=== PATIENT | male | born 1950 | race Caucasian/White ===

== ENCOUNTER → 2019-08-24 | Outpatient (CLI) | payer MEDICARE ==
[2019-08-24 11:19] LABS: Basophils % (A) 1 %; Eosinophils # (A) 0.2 k/uL (0-0.7); Eosinophils % (A) 4 %; HCT 44.5 % (39.0-53.0); Lymphocytes # (A) 1.4 k/uL (1.0-4.8); Lymphocytes % (A) 26 %; MCH 30.9 pg (25.0-35.0); MCHC 31.4 g/dL (31.0-37.0); MCV 98.4 fL (80.0-100.0); Mean Platelet Volume 6.5; Monocytes # (A) 0.3 k/uL (0-1.0); Monocytes % (A) 6 %; Neutrophils # (A) 3.2 k/uL (1.3-7.7); Neutrophils % (A) 61 %; Platelet Count 165 k/uL (150-450); RBC 4.52 m/uL (4.30-5.90); RDW 13.4 % (11.5-15.5); WBC 5.3 k/uL (3.8-10.6)
[2019-08-24 16:50] LABS: African American GFR (CKD) 72.1 (60.0-200.0); Albumin 4.3 g/dL (3.80-4.90); Albumin/Globulin Ratio 1.59 (1.60-3.17); Anion Gap 6.7 mmol/L (4.00-12.00); BUN/Creat Ratio 11.67 Ratio (12.00-20.00); Calcium 9.5 mg/dL (8.7-10.3); Carbon Dioxide 28.3 mmol/L (21.6-31.8); Chol/HDL Ratio 4.73; Globulin 2.7 g/dL (1.6-3.3); LDL Cholesterol,Calculated 138.2 mg/dL (0.0-131.0); Potassium 4.2 mmol/L (3.5-5.5); Total Bilirubin 0.8 mg/dL (0.2-1.2); VLDL Calculation 51.8 mg/dL (5.00-40.00)
== END | disposition home or self-care (01) ==
LOC: LABWHC1 10:19
PROVIDERS: ATTEND Family Medicine
DX: E03.9 Hypothyroidism, unspecified (principal)
CPT/HCPCS: 36415; 80053; 80061; 84439; 84443; 85025

== ENCOUNTER → 2020-07-09 | Outpatient (CLI) | payer MEDICARE ==
--- NOTE | 2020-07-09 17:53 | XR ---
PROCEDURE: XR lumbar spine- 3V DATE AND TIME: 07/09/2020 4:27 PM CLINICAL INDICATION: PHH; M54.5; chronic low back pain TECHNIQUE: Department protocol COMPARISON: None FINDINGS: There is mild dextrocurvature. There are markedly-advanced degenerative facet and degenerative disc changes seen at all levels, with 1.5 cm anterior listhesis of L5 vertebral body upon S1, with apparent bilateral L5 pars interarticul argenis defects. There is no evidence of fracture. No focal skeletal lesion. The soft tissues are negative for acute findings. IMPRESSION: Marked multilevel lumbar spondylosis.
== END | disposition home or self-care (01) ==
LOC: RAD 16:13
PROVIDERS: ATTEND Family Medicine
DX: M47.816 Spondylosis without myelopathy or radiculopathy, lumbar region (principal)
CPT/HCPCS: 72100

== ENCOUNTER → 2020-08-12 | Outpatient (CLI) | payer MEDICARE ==
--- NOTE | 2020-08-12 18:46 | MR ---
EXAMINATION TYPE: MR lumbar spine wo con DATE OF EXAM: 08/12/2020 COMPARISON: Lumbar spine x-ray July 09, 2020 HISTORY: Lumbar spondylosis per order. Low back pain into left leg per patient TECHNIQUE: Multiplanar, multisequence imaging of the lumbar spine is performed without IV contrast. FINDINGS: Sagittal images of the lumbar spine show vertebral body heights to remain satisfactory. The re is some ossific fusion of the L2 and L3 vertebra. There is grade 1 retrolisthesis L3 on L4 and L4 on L5. There are bilateral pars defects with severe grade 1 anterolisthesis L5 on S1. Multilevel disc desiccation. Advanced disc space narrowing L3-L4 and L5-S1 levels. Moderate disc space narrowing sec ond disc phenomenon L4-L5 level. Mild to moderate disc space narrowing with heterogeneous Modic type I endplate changes and mild to moderate anterior spurring L1-L2 level. The conus medullaris is normal in position and signal ending mid L1 level. Posterior disc herniations effacing anterior thecal sac at T10-T11 and T11-T12 levels on sagittal images. Axial images at T12-L1 level show [id number] broad disc bulge with right facet degenerative chun nge and ligamentum flavum hypertrophy, there is effacement of the anterior and posterior lateral thec al sac on the right. Patent bilateral neural foramina. Axial images at the L1-L2 level shows moderate broad-based posterior disc protrusion mildly effacing anterior thecal sac. There is mild facet degenerative change and ligamentum flavum hypertrophy effaci ng posterior lateral thecal sac. There is mild right greater than left bilateral inferior neural fora irina narrowing. Axial images at the L2-L3 level show posterior spurring and spondylolisthesis with some effacement of the anterior thecal sac. There is moderate left and mild right-sided neural foraminal narrowing due to posterior bony projection. Axial images at L3-L4 level show spondylolisthesis with broad-based right foraminal/lateral disc prot rusion. There is mild/moderate right greater than left facet degenerative change effacing right theca l sac. There is [id number] left and moderate right-sided neural foraminal narrowing noted. Axial images at the L4-L5 level show spondylolisthesis with moderate to advanced broad-based posterio r disc protrusion. There is moderate to advanced facet degenerative change bilaterally. There is effa cement of the anterior and posterior lateral thecal sac. There is moderate left and severe right-side d neural foraminal narrowing. Axial images at the L5-S1 level show spondylolisthesis along with moderate to advanced facet degenera tive change bilaterally. There is effacement of the posterior lateral thecal sac. There is moderate t o severe inferior bilateral neural foraminal narrowing encroaching on the inferior aspect of both L5 nerves on the right sagittal image 12 and on the left sagittal image 3. Some cortical thinning in both kidneys is present. IMPRESSION: Multilevel spondylolisthesis and degenerative changes in the lumbar spine as detailed abo ve greatest L5-S1 level.
== END | disposition home or self-care (01) ==
LOC: RADMRIMAIN 17:46
PROVIDERS: ATTEND Family Medicine
DX: M43.16 Spondylolisthesis, lumbar region (principal); M47.816 Spondylosis without myelopathy or radiculopathy, lumbar region; M47.817 Spondylosis without myelopathy or radiculopathy, lumbosacral region
CPT/HCPCS: 72148

== ENCOUNTER → 2021-09-23 | Outpatient (CLI) | payer MEDICARE ==
--- NOTE | 2021-09-23 14:07 | XR ---
EXAMINATION TYPE: XR cervical spine comp DATE OF EXAM: 09/23/2021 COMPARISON: None HISTORY: Neck pain TECHNIQUE: 5 view cervical spine FINDINGS: Odontoid is visualized appears normal. The tip is somewhat obscured by the occiput. Prevert ebral space is normal. Anterior vertebral body spurring is present C4-C7. Posterior spinal lamellar l ine is intact. Some posterior endplate spurring is present C4-5 through C6-7. There is diffuse loss o f disc height to the cervical spine Moderate foraminal narrowing is present through the bilateral foramen greatest C3-4 through C5-6. IMPRESSION: 1. Degenerative disc change and foraminal stenosis. Consider MRI for additional workup
--- NOTE | 2021-09-23 14:10 | XR ---
EXAMINATION TYPE: XR lumbosacral spine min 4V DATE OF EXAM: 09/23/2021 COMPARISON: 07/09/2020 HISTORY: Low back pain TECHNIQUE: 5 view lumbar spine FINDINGS: There is a grade 1 to grade 2 spondylolisthesis of L5 anteriorly on S1. There is loss of di sc height throughout the lumbar spine. There may be some lumbar fusion of L2-3. Vacuum disc phenomeno n is present. Facet degenerative changes are present. No spondylolytic defects are evident. IMPRESSION: 1. Chronic advanced degenerative changes through the lumbar spine, stable from comparison 2019. 2. Grade 2 spondylolisthesis L5-S1, stable. 3. Degenerative disc changes
== END | disposition home or self-care (01) ==
LOC: RADXRMAIN 12:15
PROVIDERS: ATTEND Family Medicine
DX: M48.02 Spinal stenosis, cervical region (principal); M50.30 Other cervical disc degeneration, unspecified cervical region; M51.36 Other intervertebral disc degeneration, lumbar region
CPT/HCPCS: 72050; 72110

== ENCOUNTER 2023-06-12 12:31 | Observation (INO) | payer MEDICARE ==
[2023-06-12 12:36] VITALS: RESP 16
--- NOTE | 2023-06-12 15:16 | ED ---
General Adult HPI - General Chief complaint: Neuro Symptoms/Deficit Stated complaint: Weakness Time Seen by Provider: 06/12/23 13:42 Source: patient Mode of arrival: ambulatory Limitations: no limitations - History of Present Illness Initial comments: This is a 72-year-old male with a past medical history including hypothyroidism not on any of his prescribed medications presents the emergency department for generalized weakness. The patient stated that over the last 1-1/2 weeks, the patient is had weakness of his bilateral lower extremities and upper extremities as well as feeling cold. The patient tried to make an appointment with his private care physician but he was told to come to the emergency department to rule out a possible stroke. The patient on arrival was resting in bed without any acute or focal complaints. The patient stated that he had not taken his prescribed medications in several weeks. The patient denied any other acute p ain or complaints at this time. - Related Data Home Medications Medication Instructions Recorded Confirmed Levothyroxine Sodium [Synthroid] 112 mcg PO DAILY 06/12/23 06/12/23 Allergies Allergy/AdvReac Type Severity Reaction Status Date / Time No Known Allergies Allergy Verified 06/12/23 17:10 Review of Systems ROS Statement: Those systems with pertinent positive or pertinent negative responses have been documented in the HPI. ROS Other: All systems not noted in ROS Statement are negative. Past Medical History Past Medical History: Hyperlipidemia, Sleep Apnea/CPAP/BIPAP Additional Past Medical History / Comment(s): hx. kidney stones, past hx. colon polyps, uses CPAP History of Any Multi-Drug Resistant Organisms: None Reported Past Surgical History: Cholecystectomy, Hernia Repair Past Anesthesia/Blood Transfusion Reactions: Postoperative Nausea & Vomiting (PONV) Smoking Status: Never smoker Past Alcohol Use History: Occasional Past Drug Use History: None Reported - Past Family History Sister(s) Family Medical History: Cancer General Exam Limitations: no limitations General appearance: alert, in no apparent distress Head exam: Present: atraumatic, normocephalic, normal inspection Eye exam: Present: normal appearance, PERRL Pupils: Present: normal accommodation ENT exam: Present: normal exam, normal oropharynx, mucous membranes moist Neck exam: Present: normal inspection, full ROM Respiratory exam: Present: normal lung sounds bilaterally Cardiovascular Exam: Present: regular rate, normal rhythm, normal heart sounds GI/Abdominal exam: Present: soft, normal bowel sounds Extremities exam: Present: normal inspection, full ROM, pedal edema Back exam: Present: normal inspection, full ROM Neurological exam: Present: alert, oriented X3, CN II-XII intact. Absent: abnormal gait, motor sensory deficit Psychiatric exam: Present: normal affect, normal mood Skin exam: Present: warm, dry Course Vital Signs 06/12/23 12:34 Temperature 98.2 F Pulse Rate 74 Respiratory 16 Rate Blood Pressure 141/83 O2 Sat by Pulse 98 Oximetry EKG Findings - EKG Comments: EKG Findings:: An EKG was obtained and was interpreted by myself showing a rate of 57, GA interval 174, QR temple of 102 and QTC of 416. This EKG showed a sinus bradycardia with no ST segment elevation or depression noted. Medical Decision Making - Medical Decision Making Was pt. sent in by a medical professional or institution ([facility], [employer]IC, urgent care, hospital, or halfway...) When possible be specific @ -No Did you speak to anyone other than the patient for history (EMS, parent, family, police, friend...)? What history was obtained from this source @ -No Did you review nursing and triage notes (agree or disagree)? Why? @ -I reviewed and agree with nursing and triage notes Were old charts reviewed (outside hosp., previous admission, EMS record, old EKG, old radiological studies, urgent care reports/EKG's, halfway records)? Report findings @ -No old charts were reviewed Differential Diagnosis (chest pain, altered mental status, abdominal pain women, abdominal pain men, vaginal bleeding, weakness, fever, dyspnea, syncope, headache, dizziness, GI bleed, back pain, seizure, CVA, palpatations, mental health)? @ -Myxedema coma, hypothyroidism, electrolyte abnormality EKG interpreted by me (3pts min.). @ -As above X-rays interpreted by me (1pt min.). @ -Chest x-ray was obtained and was interpreted by myself showing no acute process. CT interpreted by me (1pt min.). @ -None done U/S interpreted by me (1pt. min.). @ -None done What testing was considered but not performed or refused? (CT, X-rays, U/S, labs)? Why? @ -None What meds were considered but not given or refused? Why? @ -None Did you discuss the management of the patient with other professionals (garfield tan i.e. , PA, GENERATING [employer]ATION MECHANIC, lab, RT, psych nurse, social work lecturer, professor of physical education, teacher, workers' compensation hearings officer, hospice case manager)? Give summary @ -Yes, admitting team was contacted and patient admission. Was smoking cessation discussed for >3mins.? @ -No Was critical care preformed (if so, how long)? @ -No Were there social determinants of health that impacted care today? How? (Homelessness, low income, unemployed, alcoholism, drug addiction, transportation, low edu. Level, literacy, decrease access to med. care, prison, rehab)? @ -No Was there de-escalation of care discussed even if they declined (Discuss DNR or withdrawal of care, Hospice)? DNR status @ -No What co-morbidities impacted this encounter? (DM, HTN, Smoking, COPD, CAD, Cancer, CVA, ARF, Chemo, Hep., AIDS, mental health diagnosis, sleep apnea, morbid obesity)? @ -Hypothyroidism Was patient admitted / discharged? Hospital course, mention meds given and route, prescriptions, significant lab abnormalities, going to OR and other pertinent info. @ -The patient was seen and evaluated emergency department. Physical exam, the patient was resting in bed without any acute distress. Vital signs admission were stable. Due to the nature the patient's complaints, laboratory workup including a TSH reflex T4 was obtained. TSH was the on the upper limits of normal with a T4 that was undetectable. Due to this severe hypothyroidism in the setting of generalized weakness, the patient will be admitted to the hospital for further workup and evaluation. The admitting team was contacted and accepted the patient for admission. The patient remained stable and could not provide his home dose of Synthroid therefore this was not started in the emergency department will be deferred to the admitting service. The patient was agreeable to this and was admitted in stable condition. Undiagnosed new problem with uncertain prognosis? @ -No Drug Therapy requiring intensive monitoring for toxicity (Heparin, Nitro, Insulin, Cardizem)? @ -No Were any procedures done? @ -No Diagnosis/symptom? @ -Severe hypothyroidism, weakness Acute, or Chronic, or Acute on Chronic? @ -Acute Uncomplicated (without systemic symptoms) or Complicated (systemic symptoms)? @ -Complicated Side effects of treatment? @ -No Exacerbation, Progression, or Severe Exacerbation? @ -No Poses a threat to life or bodily function? How? (Chest pain, [place], [place], pneumonia, PE, COPD, DKA, ARF, appy, cholecystitis, CVA, Diverticulitis, Homicidal, Suicidal, threat to staff... and all critical care pts) @ -Yes, continued severe hypothyroidism can lead to myxedema coma and severe metabolic disturbance and possible . - Lab Data Result diagrams: 06/12/23 15:13 06/12/23 15:13 Lab Results 06/12/23 06/12/23 06/12/23 Range/Units 15:13 15:13 15:13 WBC 5.1 (3.8-10.6) k/uL RBC 4.04 L (4.30-5.90) m/uL Hgb 13.4 (13.0-17.5) gm/dL Hct 39.9 (39.0-53.0) % MCV 98.7 (80.0-100.0) fL MCH 33.2 (25.0-35.0) pg MCHC 33.6 (31.0-37.0) g/dL RDW 14.5 (11.5-15.5) % Plt Count 107 L (150-450) k/uL MPV 8.6 Neutrophils % 61 % Lymphocytes % 30 % Monocytes % 4 % Eosinophils % 3 % Basophils % 1 % Neutrophils # 3.1 (1.3-7.7) k/uL Lymphocytes # 1.5 (1.0-4.8) k/uL Monocytes # 0.2 (0-1.0) k/uL Eosinophils # 0.1 (0-0.7) k/uL Basophils # 0.0 (0-0.2) k/uL PT 10.9 (9.0-12.0) sec INR 1.0 (<1.2) APTT 25.0 (22.0-30.0) sec Sodium 137 (137-145) mmol/L Potassium 4.4 (3.5-5.1) mmol/L Chloride 103 (98-107) mmol/L Carbon Dioxide 28 (22-30) mmol/L Anion Gap 6 mmol/L BUN 18 (9-20) mg/dL Creatinine 1.64 H (0.66-1.25) mg/dL Est GFR (CKD-EPI)AfAm 48 (>60 ml/min/1.73 sqM) Est GFR (CKD-EPI)NonAf 42 (>60 ml/min/1.73 sqM) Glucose 91 (74-99) mg/dL Calcium 9.0 (8.4-10.2) mg/dL Magnesium 2.0 (1.6-2.3) mg/dL Total Bilirubin 1.5 H (0.2-1.3) mg/dL AST 54 (17-59) U/L ALT 24 (4-49) U/L Alkaline Phosphatase 40 (38-126) U/L Troponin I (0.000-0.034) ng/mL NT-Pro-B Natriuret Pep 27 pg/mL Total Protein 7.8 (6.3-8.2) g/dL Albumin 4.1 (3.5-5.0) g/dL Lipase 146 (23-300) U/L TSH >100.000 H (0.465-4.680) mIU/L Free T4 <0.07 L (0.78-2.19) ng/dL Urine Color Urine Appearance (Clear) Urine pH (5.0-8.0) Ur Specific [place] (1.001-1.035) Urine Protein (Negative) Urine Glucose (UA) (Negative) Urine Ketones (Negative) Urine Blood (Negative) Urine Nitrite (Negative) Urine Bilirubin (Negative) Urine Urobilinogen (<2.0) mg/dL Ur Leukocyte Esterase (Negative) 06/12/23 06/12/23 Range/Units 15:13 15:38 WBC (3.8-10.6) k/uL RBC (4.30-5.90) m/uL Hgb (13.0-17.5) gm/dL Hct (39.0-53.0) % MCV (80.0-100.0) fL MCH (25.0-35.0) pg MCHC (31.0-37.0) g/dL RDW (11.5-15.5) % Plt Count (150-450) k/uL MPV Neutrophils % % Lymphocytes % % Monocytes % % Eosinophils % % Basophils % % Neutrophils # (1.3-7.7) k/uL Lymphocytes # (1.0-4.8) k/uL Monocytes # (0-1.0) k/uL Eosinophils # (0-0.7) k/uL Basophils # (0-0.2) k/uL PT (9.0-12.0) sec INR (<1.2) APTT (22.0-30.0) sec Sodium (137-145) mmol/L Potassium (3.5-5.1) mmol/L Chloride (98-107) mmol/L Carbon Dioxide (22-30) mmol/L Anion Gap mmol/L BUN (9-20) mg/dL Creatinine (0.66-1.25) mg/dL Est GFR (CKD-EPI)AfAm (>60 ml/min/1.73 sqM) Est GFR (CKD-EPI)NonAf (>60 ml/min/1.73 sqM) Glucose (74-99) mg/dL Calcium (8.4-10.2) mg/dL Magnesium (1.6-2.3) mg/dL Total Bilirubin (0.2-1.3) mg/dL AST (17-59) U/L ALT (4-49) U/L Alkaline Phosphatase (38-126) U/L Troponin I <0.012 (0.000-0.034) ng/mL NT-Pro-B Natriuret Pep pg/mL Total Protein (6.3-8.2) g/dL Albumin (3.5-5.0) g/dL Lipase (23-300) U/L TSH (0.465-4.680) mIU/L Free T4 (0.78-2.19) ng/dL Urine Color Yellow Urine Appearance Clear (Clear) Urine pH 6.0 (5.0-8.0) Ur Specific [place] 1.025 (1.001-1.035) Urine Protein Trace H (Negative) Urine Glucose (UA) Negative (Negative) Urine Ketones Negative (Negative) Urine Blood Negative (Negative) Urine Nitrite Negative (Negative) Urine Bilirubin Negative (Negative) Urine Urobilinogen 2.0 (<2.0) mg/dL Ur Leukocyte Esterase Negative (Negative) Disposition Clinical Impression: Weakness, Hypothyroid Disposition: ADMITTED IP TO THIS [facility] Condition: Stable Is patient prescribed a controlled substance at d/c from ED?: No Time of Disposition: 16:00 Decision to Admit Reason: Admit from EC Decision Date: 06/12/23 Decision Time: 16:00
[2023-06-12 15:38] LABS: Basophils % (A) 1 %; Eosinophils # (A) 0.1 k/uL (0-0.7); Eosinophils % (A) 3 %; HCT 39.9 % (39.0-53.0); HGB 13.4 gm/dL (13.0-17.5); Lymphocytes # (A) 1.5 k/uL (1.0-4.8); Lymphocytes % (A) 30 %; MCH 33.2 pg (25.0-35.0); MCHC 33.6 g/dL (31.0-37.0); MCV 98.7 fL (80.0-100.0); Mean Platelet Volume 8.6; Monocytes # (A) 0.2 k/uL (0-1.0); Monocytes % (A) 4 %; Neutrophils # (A) 3.1 k/uL (1.3-7.7); Neutrophils % (A) 61 %; Platelet Count 107 k/uL (150-450); RBC 4.04 m/uL (4.30-5.90); RDW 14.5 % (11.5-15.5); WBC 5.1 k/uL (3.8-10.6)
--- NOTE | 2023-06-12 15:38 | XR ---
EXAMINATION TYPE: XR chest 2V DATE OF EXAM: 06/12/2023 COMPARISON: NONE TECHNIQUE: PA and lateral views submitted. HISTORY: Weakness FINDINGS: The lungs are clear and there is no pneumothorax, pleural effusion, or focal pneumonia. Heart size normal and no overt failure. Osseous structures demonstrate hypertrophic and degenerative changes of the spine. Atherosclerotic change aorta. Bilateral pleural thickening. IMPRESSION: 1. No acute process.
[2023-06-12 15:41] LABS: ALT 24 U/L (4-49); African American GFR (CKD) 48 (>60 ml/min/1.73 sqM); Albumin 4.1 g/dL (3.5-5.0); Anion Gap 6 mmol/L; Blood Urea Nitrogen 18 mg/dL (9-20); Carbon Dioxide 28 mmol/L (22-30); Chloride 103 mmol/L (98-107); Glucose 91 mg/dL (74-99); Lipase 146 U/L (23-300); Non-African American GFR(CKD) 42 (>60 ml/min/1.73 sqM); Prothrombin Time 10.9 sec (9.0-12.0); Sodium 137 mmol/L (137-145); Total Bilirubin 1.5 mg/dL (0.2-1.3); Total Protein 7.8 g/dL (6.3-8.2)
[2023-06-12 15:50] LABS: NT-Pro-B-Type Natriuretic Pept 27 pg/mL
[2023-06-12 16:00] LABS: AST 54 U/L (17-59); Alkaline Phosphatase 40 U/L (38-126); Potassium 4.4 mmol/L (3.5-5.1)
[2023-06-12 16:41] LABS: Appearance,Urine Clear (Clear); Bilirubin,Urine Negative (Negative); Blood,Urine Negative (Negative); Color,Urine Yellow; Glucose,Urine (UA) Negative (Negative); Ketones,Urine Negative (Negative); Leukocyte Esterase,Urine Negative (Negative); Nitrite,Urine Negative (Negative); Protein,Urine Trace (Negative); Specific Gravity,Urine 1.025 (1.001-1.035)
[2023-06-12 17:02] LABS: T4, Free (Free Thyroxine) <0.07 ng/dL (0.78-2.19)
[2023-06-12] MEDS ORDERED: NALOXONE 0.4 MG/ML 1 ML VIAL IV PRN (17:45)
[2023-06-13] MEDS ORDERED: LEVOTHYROXINE 112 MCG TAB PO SCH (06:30)
[2023-06-13 12:09] VITALS: BP 134/89; PULSE 82; TEMP 97.6
[2023-06-13] MEDS ORDERED: SODIUM CHLORIDE 0.9% 500 ML 500 ML IV ONE (12:29)
[2023-06-13] MEDS ORDERED: SODIUM CHLORIDE 0.9% 1,000 ML IV SCH (12:30)
--- NOTE | 2023-06-14 04:20 | P.HPIM ---
History of Present Illness H&P Date: 06/13/23 This is a 72-year-old male who presented to the emergency department with progressive weakness and inability to ambulate. Patient reports he follows with Dr. Sakshi Fernandes in the outpatient setting with a past medical history of hyperlipidemia, sleep apnea, hypothyroidism, former smoker. Patient admits to socially drinking and denies any other illicit drug use. Patient reports he stopped taking his Synthroid a few months ago and has not followed up since reported progressive weakness with inability to ambulate and came to the hospital for further evaluation. Chest x-ray in the ER showed no acute process, EKG showed sinus bradycardia with heart rate of 57, other list reviewed and within normal limits, BMP mildly elevated and TSH was over 100 with a low T4. Review Of Systems: Constitutional: No fever, no chills, no night sweats. No weight change. Reports increased weakness, fatigue with lethargy. No daytime sleepiness. EENT: No headache. No blurred vision or double vision, no loss of vision. No loss of Hearing, no ringing in the ears, no dizziness. No nasal drainage or co ngestion. No epistaxis. No sore throat. Lungs: No shortness of breath, cough, no sputum production. No wheezing. Cardiovascular: No chest pain, no lower extremity edema. No palpitations. No paroxysmal nocturnal dyspnea. No orthopnea. No lightheadedness or dizziness. No syncopal episodes. Abdominal: No abdominal pain. No nausea, vomiting. No diarrhea. No constipation. No bloody or tarry stools.. No loss of appetite. Genitourinary: No dysuria, increased frequency, urgency. No urinary retention. Musculoskeletal: No myalgias. No muscle weakness, no gait dysfunction, no frequent falls. No back pain. No neck pain. Currently reports right hip and lower extremity numbness Integumentary: No wounds, no lesions. No rash or pruritus. No unusual bruising. No change in hair or nails. Reports feeling more cold all the time Neurologic: No aphasia. No facial droop. No change in mentation. No head injury. No headache. No paralysis. No paresthesia. Psychiatric: No depression. No anxiety. No mood swings. Endocrine: No abnormal blood sugars. No weight change. No excessive sweating or thirst. Reports cold intolerance. PHYSICAL EXAMINATION: GENERAL: The patient is alert and oriented x4, Well developed, well nourished. Obese HEENT: Pupils are round and equally reacting to light. EOMI. no scleral icterus. No conjunctival pallor. Normocephalic, atraumatic. No pharyngeal erythema. No thyromegaly. CARDIOVASCULAR: S1 and S2 muffled PULMONARY: diminished breath sounds bilaterally with no wheezing or rhonchi noted. ABDOMEN: soft. Nontender on exam. obese. non-distended, normoactive bowel sounds. No palpable organomegaly. MUSCULOSKELETAL: No joint swelling or deformity. EXTREMITIES: No cyanosis, clubbing, or pedal edema. NEUROLOGICAL: Gross neurological examination did not reveal any focal deficits. Diffuse weakness SKIN: No rashes. Assessment: Generalized weakness with inability to ambulate History of sleep apnea Elevated creatinine with acute kidney injury, likely secondary to dehydration History of hypothyroidism with noncompliance to medications, reports has not taken his medications in over 2 months History of hyperlipidemia Former smoker obesity with BMI of 35.4 GI prophylaxis DVT prophylaxis Full code Plan: Patient is being given gentle IV hydration and will provide prescription for follow-up labs to monitor the functions Extreme noncompliance with medications and this was discussed at length about the importance of continuing medications and will be resumed on levothyroxine and resource provided for referral to endocrine and instruct patient to follow- up with primary care provider this week Recommend repeat labs in the next few weeks to monitor her TSH with T3 and T4 free Patient evaluated by physical therapy and did well with no significant gait dysfunction Patient will be discharged later today The impression and plan of care has been dictated by Shayy Gallo, nurse practitioner as directed. Dr. Zion MD I have performed a history and examination and MDM of this patient, discussed the same with the dictator, and agree with the dictator's assessment and plan as written ,documented as a scribe. Based on total visit time, I have performed more than 50% of the visit. Any additional findings or plans will be noted. Past Medical History Past Medical History: Hyperlipidemia, Sleep Apnea/CPAP/BIPAP Additional Past Medical History / Comment(s): hx. kidney stones, past hx. colon polyps History of Any Multi-Drug Resistant Organisms: None Reported Past Surgical History: Cholecystectomy, Hernia Repair Past Anesthesia/Blood Transfusion Reactions: Postoperative Nausea & Vomiting (PONV) Smoking Status: Former smoker Past Alcohol Use History: Occasional Additional Past Alcohol Use History / Comment(s): quit smoking 2003, smoked since age of 14 Past Drug Use History: None Reported - Past Family History Sister(s) Family Medical History: Cancer Medications and Allergies Home Medications Medication Instructions Recorded Confirmed Type Levothyroxine Sodium [Synthroid] 112 mcg PO DAILY 30 Days #30 tab 06/13/23 Rx Allergies Allergy/AdvReac Type Severity Reaction Status Date / Time No Known Allergies Allergy Verified 06/12/23 17:10 Physical Exam Vitals: Vital Signs Temp Pulse Pulse Resp BP BP Pulse Ox 06/13/23 07:15 97.7 F 62 16 117/68 99 06/13/23 02:00 97.7 F 54 L 16 130/89 06/12/23 21:49 97.8 F 56 L 16 149/91 06/12/23 20:29 98.1 F 57 L 16 144/95 97 06/12/23 12:34 98.2 F 74 16 141/83 98 Intake and Output 06/12/23 06/13/23 06/13/23 22:59 06:59 14:59 Other: # Voids 2 Weight 90.718 kg Results CBC & Chem 7: 06/12/23 15:13 06/12/23 15:13 Labs: Abnormal Lab Results - Last 24 Hours (Table) 06/12/23 06/12/23 06/12/23 Range/Units 15:13 15:13 15:38 RBC 4.04 L (4.30-5.90) m/uL Plt Count 107 L (150-450) k/uL Creatinine 1.64 H (0.66-1.25) mg/dL Total Bilirubin 1.5 H (0.2-1.3) mg/dL TSH >100.000 H (0.465-4.680) mIU/L Free T4 <0.07 L (0.78-2.19) ng/dL Urine Protein Trace H (Negative) Thrombosis Risk Factor Assmnt - Choose All That Apply Each Factor Represents 1 point: Obesity (BMI >25) Each Risk Factor Represents 2 Points: Age 61-74 years Other congenital or acquired thrombophilia - If yes, enter type in comment: No Thrombosis Risk Factor Assessment Total Risk Factor Score: 3 Thrombosis Risk Factor Assessment Level: Moderate Risk Assessment and Plan Time with Patient: Greater than 30
--- NOTE | 2023-06-16 23:07 | P.DS ---
Providers Date of admission: 06/12/23 17:45 Expected date of discharge: 06/13/23 Attending physician: Charlene Pickens Primary care physician: Sakshi Fernandes Hospital Course: Final diagnosis Generalized weakness with inability to ambulate History of sleep apnea Elevated creatinine with acute kidney injury, likely secondary to dehydration History of hypothyroidism with noncompliance to medications, reports has not taken his medications in over 2 months History of hyperlipidemia Former smoker obesity with BMI of 35.4 GI prophylaxis DVT prophylaxis Full code Discharge disposition Patient is being discharged in a stable condition with guarded prognosis to home. Patient will follow-up with Dr. Fernandes in the outpatient setting upon discharge. Patient is to continue with current medications as mentioned below and close outpatient follow-up with endocrine as well and repeat labs to monitor kidney functions in the next few days. Patient has been resumed on levothyroxine and recommend follow-up labs in 4-6 weeks. Total time taken is greater than 35 minutes. Hospital course This is a 72-year-old male who was recently admitted with generalized weakness and inability to ambulate being closely monitored. Patient was hydrated showing some dehydration and kidney functions mildly elevated and thyroid functions abnormal. Patient reports has not been taking his medications in over 2 months and thyroid is over 100 with a low T4. Patient to follow up with endocrine outpatient and has been resumed on levothyroxine and will follow-up with repeat labs in the next few weeks. Patient to follow-up on kidney function labs in the next 2-3 days. Patient was evaluated by physical therapy and did well and will be going home. Currently no reports of chest pain, shortness of breath, or palpitations. Patient is afebrile. No reports of nausea or vomiting and patient is tolerating diet. Patient will be discharged home today. Physical exam: Gen: This is a 72-year-old male who is awake, alert and oriented 3, well-develo ped, well-nourished, obese HEENT: Head is atraumatic, normocephalic. Pupils equal, round. Sclerae is anicteric. NECK: Supple. No JVD. No lymphadenopathy. No thyromegaly. LUNGS: Clear to auscultation. No wheezes or rhonchi. No intercostal retractions. HEART: Regular rate and rhythm. No murmur. ABDOMEN: Soft. Obese. Bowel sounds are present. No masses. No tenderness. EXTREMITIES: No pedal edema. No calf tenderness. NEUROLOGICAL: Patient is awake, alert and oriented x3. Cranial nerves 2 through 12 are grossly intact. Please refer to medication reconciliation sheet for a list of medications. The impression and plan of care has been dictated by Shayy Gallo, Nurse Practitioner as directed. Dr. Zion MD I have performed a history and examination and MDM of this patient, discussed the same with the dictator, and agree with the dictator's assessment and plan as written ,documented as a scribe. Based on total visit time, I have performed more than 50% of the visit. Patient Condition at Discharge: Stable Plan - Discharge Summary Discharge Rx Participant: No New Discharge Prescriptions: Continue Levothyroxine Sodium [Synthroid] 112 mcg PO DAILY 30 Days #30 tab Discharge Medication List Levothyroxine Sodium [Synthroid] 112 mcg PO DAILY 30 Days #30 tab 06/13/23 [Rx] Follow up Appointment(s)/Referral(s): Sakshi Fernandes MD [Primary Care Provider] - 06/15/23 11:30 am (Please have the doctor send over a referral for the agent producer Dr. Brito in order for that office to see you.) Lul Brito MD [REFERRING] - 1 Week (They will not schedule you until you see your primary doctor and get a referral.) Ambulatory/Diagnostic Orders: Basic Metabolic Panel [LAB.AMB] Time Frame: 3 Days, Location: None Selected Patient Instructions/Handouts: Hypothyroidism (ED) Activity/Diet/Wound Care/Special Instructions: Activity Limited until follow-up Follow-up with primary care provider on discharge Continue taking medications as prescribed Recommend repeat labs in the next few days to monitor kidney functions Recommend endocrine follow-up for tight thyroid control Discharge Disposition: HOME SELF-CARE
== END 2023-06-13 18:00 | disposition home or self-care (01) ==
LOC: EC 12:31 → 5NMEDONC 17:45 → INTOOBSV 17:45 → 5NMEDONC 20:13
PROVIDERS: ADMIT Hospitalist; ATTEND Hospitalist
DX: R53.1 Weakness (principal); N17.9 Acute kidney failure, unspecified; E03.9 Hypothyroidism, unspecified; E78.5 Hyperlipidemia, unspecified; G47.30 Sleep apnea, unspecified; R26.2 Difficulty in walking, not elsewhere classified; E66.9 Obesity, unspecified; Z68.35 Body mass index [BMI] 35.0-35.9, adult; Z87.891 Personal history of nicotine dependence; Z91.148 Patient's other noncompliance with medication regimen for other reason; Z79.890 Hormone replacement therapy
CPT/HCPCS: 99285; 36415; 93005; 97161; 97166; 84439; 83880; 80053; 84443; 83690; 83735; 84484; 85025; 85610; 85730; 81003; 71046; G0378 ×2

== ENCOUNTER 2023-10-11 09:18 | Day surgery (SDC) | payer MEDICARE ==
[2023-10-09 09:57] VITALS: BMI 32.1
[2023-10-11] MEDS ORDERED: SODIUM CHLORIDE 0.9% 500 ML 500 ML IV ONE (09:26)
[2023-10-11 10:05] VITALS: TEMP 98.2
[2023-10-11] MEDS ORDERED: fentaNYL (PF) 50 MCG/ML 2 ML AMP ONE (10:15)
[2023-10-11] MEDS ORDERED: BENZOCAINE SPRAY 1 CAN TOPICAL ONE ×2 (10:48→10:57)
[2023-10-11] MEDS ORDERED: MIDAZOLAM 2 MG/2 ML VIAL IVP ONE ×2 (10:57→10:59)
[2023-10-11] MEDS ORDERED: fentaNYL (PF) 50 MCG/ML 2 ML AMP IVP ONE (10:57)
[2023-10-11 11:37] VITALS: RESP 18
[2023-10-11 12:39] VITALS: BP 125/66; PULSE 68
--- NOTE | 2023-10-11 14:41 | P.TEE ---
Date of Procedure: 10/11/23 Description of Procedure(s): Procedure performed: 1. Transesophageal Echocardiogram with color flow doppler, pulsed wave doppler and continuous wave doppler 2. Moderate conscious sedation. Sedation time 12 mins. Indications: Suspected bicuspid aortic valve Patient was evaluated by Dr. Paxton Tong who is a family practice doctor in [place]. He heard a murmur on exam and he had a suspicion of bicuspid aortic valve on surface echocardiogram. He does not perform transesophageal echocardiogram by himself. Patient is a rincon of [place] therefore Dr. Tong referred the patient to me. We have performed a transesophageal echocardiogram to evaluate his bicuspid aortic valve and see if he has any other valvular abnormality or ascending aortic aneurysms. Consent: I have discussed the risks, benefits and alternative therapies for the above-mentioned procedure. The patient has indicated understanding and acceptance of the risks of the procedure. Signed consent was obtained and was placed in the paper chart. Procedural Steps: Timeout was performed in usual fashion. Patient's heart rate, blood pressure, oxygen saturation and ECG were monitored. Benzocaine was sprayed liberally in the back of the throat. Bite block was placed between the jaw. 3 mg of Versed and 50 mcg of Fentanyl were administered intravenously. After achieving appropriate moderate conscious sedation, CHANG probe was advanced without difficulty and without any immediate complications to the esophagus. CHANG study was performed with color flow doppler, pulsed wave doppler and continuous wave doppler. Agitated saline bubbles were injected to assess for any intra- atrial shunt. The probe was then removed. Patient tolerated the procedure well. Patient was transferred to the post procedure area in stable and satisfactory condition. Throughout the procedure patient's heart rate, blood pressure, oxygen saturation and ECG were monitored. Total sedation time 12 mins. Complications: none FINDINGS Left Atrium: Normal Left atrial size. No evidence of mass or thrombus seen Left Atrial Appendage: No evidence of thrombus or mass seen in HEIKE Inter atrial septum: Intact inter-atrial septum with no evidence of atrial septal defect or patent foramen ovale. Left Ventricle: Normal global LV size and systolic function Right Atrium: Normal overall RV size Right Ventricle: Normal global RV size and systolic function Aortic Valve: Bicuspid aortic valve with calcific thickening of that leaflet tips. Fusion of the left and right coronary cusp. At least moderate aortic stenosis mean gradient of 22 mmHg. Mild eccentric aortic regurgitation. Mitral Valve: Struturally normal. No evidence of prolapse. No evidence of stenosis or regurgitation on doppler assessment. Trace regurgitation. Pulmonic Valve: No significant pulmonic regurgitation Tricuspid Valve: Structurally normal with mild tricuspid regurgitation. Ascending aorta, Aortic root and Aortic arch: Dilated ascending aorta measuring at 4.8 cm Descending aorta: Moderate intimal thickening with 1-2 mm calcification on the aortic wall CONCLUSION: Bicuspid aortic valve with calcific thickening of leaflet tips Fusion of left and right coronary cusp Moderate aortic stenosis with mean gradient of 22 mmHg next and mild eccentric aortic regurgitation Dilated ascending aorta measuring at 4.8 cm (saccular) Intimal thickening and calcification of aortic wall I explained the findings of transesophageal echocardiogram to the patient and patient's family. I have advised him to follow-up with a family practice doctor either me or Dr. Tong. I provided him with a CD of the procedure. Please fax the report to the patient's PCP and Dr Paxton Tong MD [place], [place]
== END 2023-10-11 12:33 | disposition home or self-care (01) ==
LOC: CATHCVL 09:18
PROVIDERS: ATTEND Student in an Organized Health Care Education/Training Program
DX: I35.0 Nonrheumatic aortic (valve) stenosis (principal); I35.1 Nonrheumatic aortic (valve) insufficiency
CPT/HCPCS: 93312; 93320; 93325; J2250; J3010

== ENCOUNTER → 2023-11-17 | Outpatient (CLI) | payer MEDICARE ==
[2023-11-17 10:48] LABS: Chloride 106 mmol/L (98-107); Sodium 141 mmol/L (137-145)
[2023-11-17 10:51] LABS: Anion Gap 9 mmol/L; Calcium 9.2 mg/dL (8.4-10.2); Carbon Dioxide 26 mmol/L (22-30); Glucose 105 mg/dL (74-99); Potassium 4.6 mmol/L (3.5-5.1)
[2023-11-17 10:52] LABS: African American GFR (CKD) 83 (>60 ml/min/1.73 sqM); Blood Urea Nitrogen 13 mg/dL (9-20); Non-African American GFR(CKD) 72 (>60 ml/min/1.73 sqM)
--- NOTE | 2023-11-17 11:58 | CT ---
EXAMINATION TYPE: CT angio chest CT DLP: 845 mGycm, Automated exposure control for dose reduction was used. DATE OF EXAM: 11/17/2023 11:26 AM COMPARISON: None CLINICAL INDICATION:Male, 72 years old with history of Q23.1 CONGENITAL INSUFFICIENCY OF AORTIC VALVE ; bicuspid valve TECHNIQUE/CONTRAST: CTA scan of the thorax is performed without and with IV Contrast, patient injected with 100 mL of Iso vandana 300, MIP images are created and reviewed these are created on a separate workstation.. FINDINGS: Lungs/Pleura: No evidence of focal consolidation, pleural effusion or pneumothorax. Mild centrilobula r emphysema changes are seen throughout the lungs. Mild paraseptal emphysema changes in the lung apic es. Airway: Large airways are patent. Heart: The heart is mildly enlarged for size. There is aortic valve leaflet calcifications which are mild. Mild coronary artery atherosclerosis. Vasculature: No evidence for intramural hematoma on noncontrast imaging. No evidence of intimal flap to suggest dissection.; Thoracic aorta aneurysmal dilation up to 5.5 cm with smooth tapering. No desc ending thoracic aorta aneurysm... Scattered atherosclerotic disease. Mediastinum: No gross evidence of adenopathy. There is a fluid collection density just left of the ao rta near the aortic hiatus in the inferior mediastinum. Musculoskeletal: Moderate degenerative disc disease changes are present throughout the thoracolumbar spine. Soft Tissues: Unremarkable. Lower neck: No significant findings. Upper Abdomen: Nodular contour to liver. The gallbladder is absent. IMPRESSION: 1. Ascending Thoracic aorta aneurysm measuring up to 5.5 cm. 2. Aortic valve calcifications. 3. No evidence for dissection or intramural hematoma. 4. Nodular contour to liver correlate for cirrhosis.
== END | disposition home or self-care (01) ==
LOC: RADCTMAIN 10:01
PROVIDERS: ATTEND Student in an Organized Health Care Education/Training Program
DX: I71.21 Aneurysm of the ascending aorta, without rupture (principal); Q23.1 Congenital insufficiency of aortic valve
CPT/HCPCS: 80048; 71275; 36415; Q9967

== ENCOUNTER → 2024-03-26 | Outpatient (CLI) | payer MEDICARE ==
--- NOTE | 2024-03-26 16:51 | XR ---
EXAMINATION TYPE: XR cervical spine comp DATE OF EXAM: 03/26/2024 COMPARISON: None HISTORY: 73-year-old male M54.12, radiculopathy TECHNIQUE: 5 views FINDINGS: Advanced hypertrophic facet and uncovertebral joint arthropathy is present throughout. Normal odontoi d view. On the right, there is moderate to severe bony neural foraminal narrowing at C4-C5, moderate at C3-C4 , and mild at additional levels. On the left, there is moderate bony neuroforaminal narrowing at C6-C7 and mild at additional levels. No predental space widening or prevertebral soft tissue swelling. Reversal of the normal cervical cecilia dosis. Trace grade 1 anterolisthesis C7-T1. Moderate to advanced disc/endplate degenerative change C5 -C7 levels. IMPRESSION: Moderate to advanced spondylotic changes especially mid to lower cervical spine. Degenerative grade 1 anterolisthesis C7-T1. Possible moderate to severe bony neuroforaminal narrowing on the right at C4- C5.
[2024-03-26 19:26] LABS: T4, Free (Free Thyroxine) 1.62 ng/dL (0.80-1.80)
== END | disposition home or self-care (01) ==
LOC: LABWHC1 10:38
PROVIDERS: ATTEND Family Medicine
DX: M47.22 Other spondylosis with radiculopathy, cervical region (principal); E03.9 Hypothyroidism, unspecified; M43.13 Spondylolisthesis, cervicothoracic region; R35.0 Frequency of micturition
CPT/HCPCS: 36415; 72050; 84153; 84439; 84443

== ENCOUNTER → 2024-05-03 | Outpatient (CLI) | payer MEDICARE ==
--- NOTE | 2024-05-03 19:59 | MR ---
EXAMINATION TYPE: MR cervical spine wo con DATE OF EXAM: 05/03/2024 COMPARISON: None HISTORY: Neck pain into right arm, numbness right fingers TECHNIQUE: Multiplanar, multisequence images of the cervical spine were acquired without contrast. Findings: The craniovertebral junction relationships and prevertebral soft tissues are normal. The cervical vertebral segments are normal in height and alignment and there is no fracture or sublux ation. There is mild disc space narrowing, loss of signal intensity, circumferential disc bulge and spondylo sis at C3-4, C4-5, C5-6 and C6-7 levels. There is no cervical stenosis or cervical cord abnormality. There is mild hypertrophic spurring and disc bulge to the left of midline at the C2-3 level mildly co mpromising the left lateral recess there is a mild to moderate disc spur complex at the C4-5 level po steriorly and to the right of midline compromising the right lateral recess. There is a large disc sp ur complex at the C5-6 level on the right severely compromising the right lateral recess. There is multilevel neural foraminal stenosis as follows; mild at C2-3 on the left, severe at C3-4 bi laterally, severe at C4-5 on the right and mild at C4-5 on the left, severe at C5-6 on the right and moderate at C5-6 on the left, and severe at the C6-7 level on the right.. IMPRESSION: 1. Mild degenerative disease throughout the cervical region without cervical disc herniation. 2. No cervical stenosis or cervical cord abnormality. 3. Significant posterior disc spur complexes at multiple levels with degeneration of the uncovertebra l joints resulting in multilevel bilateral neural foraminal stenosis, severe at C3-4 bilaterally, sev ere at C4-5 on the right, severe at C5-6 on the right, and C6-7 on the right.
== END | disposition home or self-care (01) ==
LOC: RADMRIMAIN 18:52
PROVIDERS: ATTEND Family Medicine
DX: M54.12 Radiculopathy, cervical region (principal); M50.31 Other cervical disc degeneration, high cervical region; M48.02 Spinal stenosis, cervical region
CPT/HCPCS: 72141

== ENCOUNTER → 2024-05-27 | Outpatient (CLI) | payer MEDICARE ==
[2024-05-27 13:29] LABS: African American GFR (CKD) 81 (>60 ml/min/1.73 sqM); Blood Urea Nitrogen 13 mg/dL (9-20); Non-African American GFR(CKD) 70 (>60 ml/min/1.73 sqM)
--- NOTE | 2024-05-27 14:16 | CT ---
EXAMINATION TYPE: CT angio chest DATE OF EXAM: 05/27/2024 COMPARISON: 11/17/2023 HISTORY: f/u aneurysm CT DLP: 700 mGycm CONTRAST: CTA thoracic aorta with 3-D reconstruction is performed and without and with IV Contrast, patient inj ected with 100ml mL of Isovue 370. Contrast CTA of the thoracic aorta was performed from the lung apex through the upper abdomen. 3D re construction imaging obtained at a separate workstation. CT Chest: THORACIC AORTA: Ascending thoracic aortic aneurysm redemonstrated measuring 5.5 cm versus 5.5 cm prev iously. Aortic valvular calcifications are redemonstrated. Mild atheromatous changes seen. There is no evidence for dissection or periaortic collection. LUNGS: The lungs are clear and free of infiltrate or atelectasis. No pulmonary nodule or mass is det ected. No pleural effusion or CT evidence of interstitial lung disease. MEDIASTINUM: Probable diverticulum adjacent to the distal esophagus. No evidence for mediastinal hem atoma. The heart is not enlarged. No evidence for mediastinal mass or adenopathy. HILAR STRUCTURES: No evidence for mass. No hilar adenopathy is appreciated. OTHER: Nodular hepatic contour could reflect cirrhosis. IMPRESSION- 1. Stable ascending thoracic aortic aneurysm. 2. 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
== END | disposition home or self-care (01) ==
LOC: RADCTMAIN 12:45
PROVIDERS: ATTEND Thoracic Surgery (Cardiothoracic Vascular Surgery)
DX: I71.20 Thoracic aortic aneurysm, without rupture, unspecified (principal); I71.21 Aneurysm of the ascending aorta, without rupture
CPT/HCPCS: 82565; 84520; 71275; 36415; Q9967

== ENCOUNTER → 2024-10-28 | Day surgery (SDC) | payer MEDICARE ==
[~2024-10-28] MED LIST: ALPRAZolam 0.25 MG TAB PO PRN; ALPRAZolam 0.5 MG TAB PO PRN; NITROGLYCERIN SL TABS 0.4 MG TAB SUBLINGUAL PRN; RX INFO: IV CONTRAST WAS GIVEN 1 EACH MISC MISCELLANE PRN; SODIUM CHLORIDE 0.9% 1,000 ML IV SCH
[2024-10-28] MEDS: ASPIRIN 325 MG TAB PO STA (12:30)
[2024-10-28 12:45] LABS: Basophils % (A) 0 %; Eosinophils % (A) 0 %; HCT 34.8 % (39.0-53.0); HGB 11.4 gm/dL (13.0-17.5); Lymphocytes # (A) 0.7 k/uL (1.0-4.8); Lymphocytes % (A) 20 %; MCH 30.6 pg (25.0-35.0); MCHC 32.8 g/dL (31.0-37.0); MCV 93.4 fL (80.0-100.0); Mean Platelet Volume 9.3; Monocytes # (A) 0.3 k/uL (0-1.0); Monocytes % (A) 8 %; Neutrophils # (A) 2.6 k/uL (1.3-7.7); Neutrophils % (A) 71 %; RBC 3.73 m/uL (4.30-5.90); RDW 13.6 % (11.5-15.5); WBC 3.7 k/uL (3.8-10.6)
[2024-10-28] MEDS: SODIUM CHLORIDE 0.9% 1,000 ML in EMPTY BAG 1 BAG IV SCH (12:45)
[2024-10-28] MEDS: IV FLUID CONTINUATION 1,000 ML IV ONE (12:45)
[2024-10-28 12:49] LABS: African American GFR (CKD) 84 (>60 ml/min/1.73 sqM); Anion Gap 5 mmol/L; Blood Urea Nitrogen 18 mg/dL (9-20); Calcium 8.8 mg/dL (8.4-10.2); Carbon Dioxide 25 mmol/L (22-30); Chloride 108 mmol/L (98-107); Glucose 91 mg/dL (74-99); Non-African American GFR(CKD) 73 (>60 ml/min/1.73 sqM); Potassium 4.2 mmol/L (3.5-5.1); Sodium 138 mmol/L (137-145)
[2024-10-28 13:23] LABS: Platelet Count 79 k/uL (150-450)
[2024-10-28 13:26] LABS: RBC Morphology Normal
[2024-10-28] MEDS: fentaNYL (PF) 50 MCG/ML 2 ML AMP IVP ONE (13:54)
[2024-10-28] MEDS: MIDAZOLAM 2 MG/2 ML VIAL IVP ONE (13:54)
[2024-10-28] MEDS: LIDOCAINE 1% INJ 10MG/ML (20 ML MDV) SQ ONE (13:55)
[2024-10-28] MEDS: VERAPAMIL SYRINGE (5 MG/10 ML) INTRAARTER ONE (13:57)
[2024-10-28] MEDS: IV FLUID CONTINUATION 800 ML IV ONE (14:03)
[2024-10-28] MEDS: HEPARIN SODIUM 1,000 UN/ML (10ML VL) IVP ONE (14:03)
[2024-10-28] MEDS: IOPAMIDOL-370 100ML BTL INJ ONE (14:25)
--- NOTE | 2024-10-28 14:43 | P.CARDCATH ---
Date of Procedure: 10/28/24 Description of Procedure: DIAGNOSTIC CORONARY ANGIOGRAPHY and LEFT HEART CATH REPORT PROCEDURES PERFORMED: Left heart catheterization Selective coronary angiography Moderate conscious sedation 32 mins [Ultrasound assisted] Right radial access INDICATION: Moderate to severe aortic stenosis, substernal chest pressure CONSENT: I have explained the procedural steps of above-mentioned procedures in layman's terms to the patient. I discussed the risks (including but not limited to stroke, emergent vascular or cardiac surgery or ), benefits and alternative therapies for the above-mentioned procedure. I discussed the risks of sedation/analgesia and blood product administration (if indicated). The patient has indicated understanding and acceptance of these risks. Conscious Sedation: Patient's ECG, heart rate, blood pressure, pulse oximetry were monitored throughout the duration of procedure under my direct supervision. [2] mg Versed and [50] mcg Fentanyl were used for induction of moderate conscious sedation. Total duration of moderate concious sedation 32 minutes. PROCEDURE: After explaining the risks, benefits and alternatives of the above mentioned procedures in detail to the patient, informed consent was obtained. Patient was taken to the catheterization lab, prepped and draped in usual sterile fashion using universal precuations. Ultrasound was used to identify the radial artery. 1% lidocaine was infiltrated over the right radial artery. A 6-Serbian sheath was placed and secured in the right radial artery using modified Seldinger technique. The sheath was flushed and 5 mg verapamil was administered intra-arterially. J tipped wire was advanced under fluoroscopic guidance. Once the wire tip reached aortic root 5000 units of IV heparin was given. Over the wire JR4 diagnostic catheter was advanced. The wire in place the catheter was manipulated to cross the aortic valve and entered into LV under fluoroscopy guidance. The wire was removed and the catheter was flushed. LV pressures were obtained and pullback was performed under fluoroscopy. Catheter was manipulated to selectively engage the right coronary ostium. Right coronary angiography was performed in different angiographic projections. The JR4 diagnostic catheter was exchanged for a JL 3.5 diagnostic catheter over the J-wire. The wire was removed, catheter was flushed and manipulated under fluoroscopy to selectively engaged the left coronary ostium. Left coronary angioplasty was performed in different angiographic projections. Catheter was removed over the wire. Radial sheath was flushed. The right radial sheath was removed and a TR band was placed with excellent patent hemostasis was achieved. The patient tolerated the procedure well. Patient was transported back to the post catheterization holding area in stable condition. Angiographic images were reviewed in detail. HEMODYNAMICS: Aortic Pressure: 90/50 mmHg. LV pressure: 135/8 mmHg. LVEDP 20 mmHg. Moderate aortic stenosis Peak to peak gradient across aortic valve 45 mmHg Mean gradient across the aortic valve 33 mmHg SELECTIVE CORONARY ARTERIOGRAPHY: LEFT MAIN: The left main is large caliber vessel. It bifurcates into the LAD and circumflex. Left main appears angiographically patent LEFT ANTERIOR DESCENDING CORONARY ARTERY: LAD is moderate caliber reaches up to the apex. It has mild luminal irregularities. It gives diagonal branches which are small and appears angiographically patent. LEFT CIRCUMFLEX CORONARY ARTERY: It is nondominant vessel. Left circumflex is a moderate caliber vessel. LCx is patent with mild luminal irregularities. Mid LCx bifurcates into a small AV groove branch and a medium size OM branch which bifurcates distally. They appear angiographically patent with mild luminal irregularities. RIGHT CORONARY ARTERY: Dominant vessel. Right coronary artery has mild diffuse disease of 10 to 20%. It bifurcates into PDA and PL branches. They appear angiographically patent. IMPRESSION: Mild nonobstructive CAD Moderate to severe aortic stenosis Elevated LVEDP PLAN: Aggressive risk factor modification per most recent ACC/AHA guidelines. 100 cc fluids for 4 hours Discharge home in 4 hours Follow-up in the office in 1-2 weeks. Plan for repeat echocardiogram in 6 months to evaluate aortic valve gradients. If reaching severity or if patient becomes symptomatic in the interim, we will plan for surgical evaluation for aortic root repair and aortic valve replacement. Performing Physician Jamar Gonzales MD, FACC, RPVI Thank you for allowing [facility] to participate in this patient's care. Feel free to reach out in case of any followup questions.
[2024-10-28 19:27] VITALS: TEMP 99.3
[2024-10-28 19:54] VITALS: BP 99/57; PULSE 62; RESP 14
== END ==
LOC: CATHCVL 11:35
PROVIDERS: ATTEND Student in an Organized Health Care Education/Training Program
DX: I25.10 Atherosclerotic heart disease of native coronary artery without angina pectoris (principal); I35.0 Nonrheumatic aortic (valve) stenosis; F17.210 Nicotine dependence, cigarettes, uncomplicated; N18.2 Chronic kidney disease, stage 2 (mild); Z79.890 Hormone replacement therapy
CPT/HCPCS: 93458; 80048; 85025; 99152; 99153; J2250; J2003; J3010; J1644; Q9967

== ENCOUNTER → 2025-01-22 | Outpatient (CLI) | payer MEDICARE ==
[2025-01-22 15:09] LABS: ALT 21 U/L (10-49); AST 33 U/L (14-35); Albumin 3.8 g/dL (3.8-4.9); Albumin/Globulin Ratio 1.23 Ratio (1.60-3.17); Alkaline Phosphatase 113 U/L (41-126); BUN/Creat Ratio 10.33 Ratio (12.00-20.00); Blood Urea Nitrogen 12.4 mg/dL (9.0-27.0); Carbon Dioxide 23.3 mmol/L (21.6-31.8); Chloride 109 mmol/L (96-109); Chol/HDL Ratio 3.34 Ratio; Globulin 3.1 g/dL (1.6-3.3); Glucose 105 mg/dL (70-110); LDL Cholesterol,Calculated 60.8 mg/dL (0.0-131.0); Potassium 4.5 mmol/L (3.5-5.5); Sodium 141 mmol/L (135-145); T4, Free (Free Thyroxine) 1.25 ng/dL (0.80-1.80); Total Bilirubin 0.4 mg/dL (0.3-1.2); Total Protein 6.9 g/dL (6.2-8.2)
[2025-01-22 16:13] LABS: Basophils # (A) 0 X 10*3/uL (0.00-0.10); Basophils % (A) 0 %; Elliptocytes 2+ (None Seen); Eosinophils # (A) 0 X 10*3/uL (0.04-0.35); Eosinophils % (A) 0 %; HCT 36.2 % (39.6-50.0); HGB 11.1 g/dL (13.0-17.0); Lymphocytes # (A) 0.83 X 10*3/uL (0.90-5.00); Lymphocytes % (A) 20.6 %; MCH 29.4 pg (27.0-32.0); MCHC 30.7 g/dL (32.0-37.0); MCV 95.8 FL (80.0-97.0); Mean Platelet Volume 10.8 FL (9.5-12.2); Monocytes # (A) 0.37 X 10*3/uL (0.20-1.00); Monocytes % (A) 9.2 %; NRBC Per 100 WBC 0 X 10*3/uL (0.00-0.01); Neutrophils # (A) 2.82 X 10*3/uL (1.80-7.70); Platelet Count 81 X 10*3/uL (140-440); RBC 3.78 X 10*6/uL (4.40-5.60); RDW 14.5 % (11.5-14.5); WBC 4.03 X 10*3/uL (4.50-10.00)
== END | disposition home or self-care (01) ==
LOC: LABWHC1 12:13
PROVIDERS: ATTEND Family Medicine
DX: E78.5 Hyperlipidemia, unspecified (principal); E03.9 Hypothyroidism, unspecified
CPT/HCPCS: 36415; 80053; 80061; 84439; 84443; 85025

== ENCOUNTER → 2025-04-03 | Outpatient (CLI) | payer MEDICARE ==
[2025-04-03 14:03] LABS: African American GFR (CKD) 81 (>60 ml/min/1.73 sqM); Blood Urea Nitrogen 12 mg/dL (9-20); Non-African American GFR(CKD) 70 (>60 ml/min/1.73 sqM)
--- NOTE | 2025-04-03 15:33 | CT ---
EXAMINATION TYPE: CT angio chest DATE OF EXAM: 04/03/2025 COMPARISON: 05/27/2024 CLINICAL INDICATION: Male, 74 years old with history of I71.20 thoracic aneurysm; PHH, f/u aneurysm TECHNIQUE: CTA scan of the thorax is performed without and with IV Contrast, patient injected with 100ml mL of I sovue 370, pulmonary embolism protocol. MIP images are created and reviewed. CT DLP: 624.[address] CTDI: mGy Automated exposure control for dose reduction was used. FINDINGS: There are no suspicious lung masses or nodules. There is no airspace consolidation or abnormal interstitial density. There is no pleural effusion or pneumothorax. There is no change in the ascending thoracic aorta which measures approximately 5.3 cm. There is no c ardiomegaly. No mediastinal, hilar or axillary adenopathy. Limited scanning through the upper abdomen reveals mild splenomegaly. There are no focal osseous lesions. IMPRESSION: 1. Stable ascending thoracic aortic aneurysm measuring approximately 5.3 cm 2. No acute cardiopulmonary disease. 3. No suspicious lung mass or nodule. 4. Mild splenomegaly. [facility], , 04/03/2025 3:31 PM
== END | disposition home or self-care (01) ==
LOC: RADCTMAIN 12:59
PROVIDERS: ATTEND Student in an Organized Health Care Education/Training Program
DX: I71.20 Thoracic aortic aneurysm, without rupture, unspecified (principal); I71.21 Aneurysm of the ascending aorta, without rupture; R16.1 Splenomegaly, not elsewhere classified
CPT/HCPCS: 82565; 84520; 71275; 36415; Q9967